=== PATIENT | female | born 1945 | race Caucasian/White ===

== ENCOUNTER → 2018-05-28 | Outpatient (CLI) | payer MEDICARE ==
[~2018-05-28] MED LIST: ACTOS 30 MG TAB30 MG; ACTOS 45 MG45 MG PO; ANTIVERT25 MG PO; ASA81BEC OR; ASPIR 8181 MG PO; ASPIRIN EC325 M1; ASPIRIN325 PO; ATENOLOL 25 MG25 M1 PO; ATIVAN0.5 MG PO; B-121000 MC2 PO; CLOTRIMAZOLE-BE15 GM TP; DIABETA 5MG TABL5 MG PO; DOXEPIN 50MG CA50 M1 PO; DOXEPIN HCL150 MG PO; EFFEXOR PO; EFFEXOR75 MG PO; FOSINOPRIL SODI20 M1 PO; GEMFIBROZIL 60600 MG PO; GLUCOPHAGE500 MG PO; GLYBURIDE 5 MG T5 MG PO; HUMALOG100 UNIT/2 SQ; HYDROCODONE-AP1 EAC6 PO; JANUVIA100 MG OR; LEVEMIR SUBQ; LIPITOR 20 MG T20 M1 PO; LUMIGAN2.5 M1 OP; MATZIM LA360 MG PO; MOBIC15 MG PO; NORCO 5-325 TA1 EACH PO; OMEPRAZOLE40 MG PO; PAROXETINE HCL20 MG; PAXIL10 MG PO; PERCOCET 7.5-31 EACH OR; SULINDAC 150 M150 MG PO; VALIUM5 MG PO; VITAMIN D3400 UNIT PO; XALATAN2.5 ML OP; XANAX 0.5 MG0.5 MG PO
== END ==
LOC: M.RAD 17:28
DX: J44.9 Chronic obstructive pulmonary disease, unspecified (principal); J20.9 Acute bronchitis, unspecified; E11.9 Type 2 diabetes mellitus without complications; I10 Essential (primary) hypertension

== ENCOUNTER 2018-09-06 12:34 | Emergency (ER) | payer MEDICARE ==
[~2018-09-06] VITALS: Ht 154.9 cm; Wt 117.5 kg
[2018-09-06] MEDS ORDERED: ASA5UEC PO (12:49)
[2018-09-06 13:17] LABS: URINE BILIRUBIN NEGATIVE (Negative); URINE BLOOD NEGATIVE (Negative); URINE CLARITY CLEAR; URINE COLOR YELLOW; URINE GLUCOSE-RANDOM NEGATIVE (Negative); URINE KETONES NEGATIVE (Negative); URINE LEUKOCYTES-REFLEX NEGATIVE (Negative); URINE NITRITE-REFLEX NEGATIVE (Negative); URINE PROTEIN NEGATIVE (Negative); URINE UROBILINOGEN 0.2 E.U./dl (0.2-1.0)
[2018-09-06 13:23] LABS: ABSOLUTE BASOPHILS 0.1 thou/uL (0.0-0.2); ABSOLUTE EOSINOPHILS 0.1 thou/uL (0.0-0.7); ABSOLUTE LYMPHOCYTES 1.6 thou/uL (0.8-5.3); ABSOLUTE MONOCYTES 0.4 thou/uL (0.0-1.2); ABSOLUTE NEUTROPHILS 3.3 thou/uL (1.6-8.1); BASOPHILS 1.1 %; EOSINOPHILS 1.3 %; HEMATOCRIT 36.6 % (37.0-47.0); HEMOGLOBIN 12.3 gm/dL (12.0-15.0); LYMPHOCYTES 29.6 %; MCH 29.5 pg (26.0-34.0); MCHC 33.5 g/dL (28.0-37.0); MONOCYTES 7.4 %; MPV 7.5 fl. (7.2-11.1); NUCLEATED RBCS 0 /100WBC; PLATELET COUNT* 194 thou/uL (150-400); POLYS 60.6 %; RBC 4.16 mil/uL (4.20-5.00); RDW-CV 14.5 % (10.5-14.5); WBC 5.5 thou/uL (4.0-11.0)
[2018-09-06 13:31] LABS: CALCIUM 9.2 mg/dL (8.5-10.1); POTASSIUM 4.1 mmol/L (3.5-5.1)
[2018-09-06 13:32] LABS: APTT 21.9 Seconds (25.0-31.3); PROTIME 10.5 Seconds (9.20-11.50)
[2018-09-06 13:35] LABS: ALBUMIN 3.3 g/dL (3.4-5.0); TOTAL PROTEIN 7.4 g/dL (6.4-8.2)
[2018-09-06 14:42] VITALS: BP 149/76
== END 2018-09-06 14:43 | disposition home or self-care (01) ==
LOC: M.ERS 12:34
PROVIDERS: Nurse Practitioner Family
DX: S30.0XXA Contusion of lower back and pelvis, initial encounter (principal); S20.221A Contusion of right back wall of thorax, initial encounter; E11.9 Type 2 diabetes mellitus without complications; F32.9 Major depressive disorder, single episode, unspecified; I10 Essential (primary) hypertension; Z90.710 Acquired absence of both cervix and uterus; Z90.49 Acquired absence of other specified parts of digestive tract; Z87.442 Personal history of urinary calculi; Z79.4 Long term (current) use of insulin; W18.2XXA Fall in (into) shower or empty bathtub, initial encounter; Y93.E1 Activity, personal bathing and showering; Y92.89 Other specified places as the place of occurrence of the external cause; Y99.8 Other external cause status

== ENCOUNTER 2019-10-01 02:57 | Emergency (ER) | payer MEDICARE ==
[~2019-10-01] VITALS: Ht 160 cm; Wt 105.2 kg
[~2019-10-01 02:57] MED LIST changes: +ASA5UEC PO
[2019-10-01] MEDS ORDERED: MAGNESIUM250 M1 PO (03:11)
[2019-10-01 03:18] LABS: URINE BILIRUBIN NEGATIVE (Negative); URINE BLOOD NEGATIVE (Negative); URINE CLARITY CLEAR; URINE COLOR YELLOW; URINE GLUCOSE-RANDOM NEGATIVE (Negative); URINE KETONES NEGATIVE (Negative); URINE LEUKOCYTES-REFLEX NEGATIVE (Negative); URINE NITRITE-REFLEX NEGATIVE (Negative); URINE PROTEIN NEGATIVE (Negative); URINE SPECIFIC GRAVITY <= 1.005 (1.005-1.030); URINE UROBILINOGEN 0.2 E.U./dl (0.2-1.0)
[2019-10-01 04:26] LABS: ABSOLUTE LYMPHOCYTES 1.6 thou/uL (0.8-5.3); ABSOLUTE MONOCYTES 0.5 thou/uL (0.0-1.2); ABSOLUTE NEUTROPHILS 3.2 thou/uL (1.6-8.1); BASOPHILS 0.8 %; EOSINOPHILS 0.8 %; HEMATOCRIT 29.8 % (37.0-47.0); HEMOGLOBIN 10.3 gm/dL (12.0-15.0); LYMPHOCYTES 30.1 %; MCH 28.7 pg (26.0-34.0); MCHC 34.7 g/dL (28.0-37.0); MCV 82.7 fL (80.0-100.0); MPV 7.4 fl. (7.2-11.1); NUCLEATED RBCS 0 /100WBC; PLATELET COUNT* 83 thou/uL (150-400); POLYS 59.3 %; RDW-CV 19.3 % (10.5-14.5); WBC 5.4 thou/uL (4.0-11.0)
[2019-10-01 04:38] LABS: CALCIUM 8.4 mg/dL (8.5-10.1); CREATININE 1.1 mg/dL (0.6-1.3); POTASSIUM 3.7 mmol/L (3.5-5.1)
[2019-10-01 04:40] LABS: INR 1.1; PROTIME 10.9 Seconds (9.20-11.50)
[2019-10-01 04:42] LABS: ALBUMIN 2.9 g/dL (3.4-5.0); TOTAL PROTEIN 6.5 g/dL (6.4-8.2)
[2019-10-01] MEDS ORDERED: PERCOCET 5-3251 EACH PO (07:15)
[2019-10-01 07:34] VITALS: BP 139/47
== END 2019-10-01 07:34 | disposition home or self-care (01) ==
LOC: M.ERS 02:57
PROVIDERS: Emergency Medicine
DX: S22.080A Wedge compression fracture of T11-T12 vertebra, initial encounter for closed fracture (principal); E11.9 Type 2 diabetes mellitus without complications; I10 Essential (primary) hypertension; Z90.710 Acquired absence of both cervix and uterus; Z90.49 Acquired absence of other specified parts of digestive tract; Z87.442 Personal history of urinary calculi; Z88.5 Allergy status to narcotic agent; Z79.4 Long term (current) use of insulin; Z88.8 Allergy status to other drugs, medicaments and biological substances; W10.8XXA Fall (on) (from) other stairs and steps, initial encounter; Y93.89 Activity, other specified; Y92.89 Other specified places as the place of occurrence of the external cause; Y99.8 Other external cause status

== ENCOUNTER 2019-10-05 02:17 | Emergency (ER) | payer MEDICARE ==
[~2019-10-05] VITALS: Ht 157.5 cm; Wt 105.2 kg
[~2019-10-05 02:17] MED LIST changes: +MAGNESIUM250 M1 PO; +PERCOCET 5-3251 EACH PO
[2019-10-05 03:23] LABS: URINE BILIRUBIN NEGATIVE (Negative); URINE BLOOD NEGATIVE (Negative); URINE CLARITY CLEAR; URINE COLOR YELLOW; URINE GLUCOSE-RANDOM 2+ (Negative); URINE KETONES NEGATIVE (Negative); URINE LEUKOCYTES-REFLEX NEGATIVE (Negative); URINE NITRITE-REFLEX NEGATIVE (Negative); URINE PROTEIN NEGATIVE (Negative); URINE UROBILINOGEN 0.2 E.U./dl (0.2-1.0)
[2019-10-05] MEDS ORDERED: FLEXERIL PO (04:41)
[2019-10-05] MEDS ORDERED: PERCOCET 7.5-31 EAC1 PO (04:41)
[2019-10-05 04:47] VITALS: BP 163/61
== END 2019-10-05 04:47 | disposition home or self-care (01) ==
LOC: M.ERS 02:17
PROVIDERS: Emergency Medicine
DX: M54.6 Pain in thoracic spine (principal); I10 Essential (primary) hypertension; E11.9 Type 2 diabetes mellitus without complications; Z90.710 Acquired absence of both cervix and uterus; Z90.49 Acquired absence of other specified parts of digestive tract; Z88.8 Allergy status to other drugs, medicaments and biological substances; Z88.5 Allergy status to narcotic agent; Z87.442 Personal history of urinary calculi

== ENCOUNTER 2019-10-10 05:42 | Inpatient (IN) | payer MEDICARE ==
[~2019-10-10] VITALS: Ht 157.5 cm; Wt 105.2 kg
[~2019-10-10 05:42] MED LIST changes: +FLEXERIL PO; +PERCOCET 7.5-31 EAC1 PO
[2019-10-10 05:45] VITALS: BP 207/88
--- NOTE | 2019-10-10 05:45 | NUR ---
PT AMBULATORY UPON ARRIVAL TO ED. PT GOT OFF OF EMS COT, WALKED WITH STEADY GAIT TO RESTROOM AND THEN WALKED TO ED ROOM BEFORE GETTING INTO ED BED. AFTER GETTING TO ROOM FOR TRIAGE, PT REQUESTING HER CANE. CANE WAS RETRIEVED FROM EMS AND GIVEN TO PATIENT.
--- NOTE | 2019-10-10 05:51 | NUR ---
WHILE TRYING TO DISCUSS TIME FRAME OF ONSET OF THIS PAIN, PT STATES SHE FELL ON 09/27/2019. WHEN ASKED IF THIS PAIN STARTED AFTER THE FALL, PT BECAME VERBALLY ABUSIVE TOWARDS NURSING STAFF. I SPOKE TO PATIENT ABOUT ATTEMPT TO UNDERSTANDING THE COMPLAINT, TO BETTER CARE FOR HER, PT ROLLED HER EYES AND AGAIN REFUSED TO CONTINUE TO ANSWER FURTHER QUESTIONS.
[2019-10-10 06:45] LABS: URINE BILIRUBIN NEGATIVE (Negative); URINE BLOOD NEGATIVE (Negative); URINE CLARITY CLEAR; URINE COLOR YELLOW; URINE GLUCOSE-RANDOM NEGATIVE (Negative); URINE KETONES NEGATIVE (Negative); URINE LEUKOCYTES-REFLEX NEGATIVE (Negative); URINE NITRITE-REFLEX NEGATIVE (Negative); URINE PROTEIN NEGATIVE (Negative); URINE UROBILINOGEN 0.2 E.U./dl (0.2-1.0)
[2019-10-10 07:03] LABS: ABSOLUTE BASOPHILS 0.1 thou/uL (0.0-0.2); ABSOLUTE EOSINOPHILS 0.1 thou/uL (0.0-0.7); ABSOLUTE LYMPHOCYTES 1.2 thou/uL (0.8-5.3); ABSOLUTE MONOCYTES 0.4 thou/uL (0.0-1.2); ABSOLUTE NEUTROPHILS 2.8 thou/uL (1.6-8.1); BASOPHILS 1.4 %; EOSINOPHILS 1.8 %; HEMATOCRIT 31.5 % (37.0-47.0); HEMOGLOBIN 10.6 gm/dL (12.0-15.0); LYMPHOCYTES 26.5 %; MCH 27.9 pg (26.0-34.0); MCHC 33.6 g/dL (28.0-37.0); MONOCYTES 8.2 %; MPV 7.2 fl. (7.2-11.1); NUCLEATED RBCS 0 /100WBC; PLATELET COUNT* 125 thou/uL (150-400); POLYS 62.1 %; RBC 3.79 mil/uL (4.20-5.00); RDW-CV 20.1 % (10.5-14.5); WBC 4.6 thou/uL (4.0-11.0)
[2019-10-10 07:13] LABS: CALCIUM 9.1 mg/dL (8.5-10.1); POTASSIUM 3.9 mmol/L (3.5-5.1)
[2019-10-10 07:17] LABS: ALBUMIN 3.2 g/dL (3.4-5.0); TOTAL BILIRUBIN 0.9 mg/dL (<0.1-1.0); TOTAL PROTEIN 7.1 g/dL (6.4-8.2)
--- NOTE | 2019-10-10 09:34 | NUR ---
PUREWICK ADMINISTERED TO PATIENT. PT GIVEN CLEAN BEDDING, FRESH WARM BLANKET.
--- NOTE | 2019-10-10 10:29 | NUR ---
PT HAS WOUND ON COCCYX THAT HE IS BEING TREATED FOR AT THIS FACILITY. PT REPORTS PAIN IN THAT AREA. PT ASSISTED ON RIGHT SIDE WITH PILLOW TO SUPPORT HIS BACK. PT REPORTS RELIEF OF PAIN IN COCCYX AREA.
--- NOTE | 2019-10-10 10:35 | NUR ---
PUREWICK REMOVED PER PT REQUEST.
[2019-10-10 11:17] VITALS: BP 175/22
[2019-10-10 12:45] VITALS: BP 154/71
[2019-10-10] MEDS ORDERED: ZESTRIL40 MG PO (14:13)
[2019-10-10] MEDS ORDERED: TOPROL XL50 MG PO (14:13)
[2019-10-10] MEDS ORDERED: NORVASC 2.5 MG2.5 M1 PO (14:13)
[2019-10-10] MEDS ORDERED: COMBIGAN EYE DR10 ML OPHTHALMIC (14:14)
[2019-10-10 16:00] VITALS: BP 145/76
--- NOTE | 2019-10-10 17:04 | NUR ---
PT ALERT AND ORIENTED AND DROWSY WITH PAIN MEDICATIONS. KHYPOPLASTY TOMORROW. JUAN PLACED ORDERED. PT HAS BM TODAY. FALL RISK PRECAUTIONS IN PLACE. HOURLY ROUNDING COMPLETED. WILL CONTINUE TO MONITOR.
[2019-10-10 20:05] VITALS: BP 144/68
--- NOTE | 2019-10-11 04:58 | NUR ---
SLEPT ALL NIGHT WITHOUT ANY ISSUES. GAVE ALL MEDS AND PAIN MEDICATION SCHEDULED. KYPHOPLASTY SCHEDULED POSSIBLY TODAY. HOURLY ROUNDING MADE. SHE DID NOT REPORT ANY WORSENING OF PAIN. WILL CONTINUE TO FOLLOW PLAN OF CARE.
[2019-10-11 08:27] LABS: APTT 25.2 Seconds (25.0-31.3); INR 1.1; PROTIME 11.4 Seconds (9.20-11.50)
--- NOTE | 2019-10-11 14:52 | NUR ---
SPOKE WITH PT.AND DAUGHTER,CONNIE IN ROOM. PT.LIVES WITH HER DAUGHTER,CONNIE, AND HER FAMILY IN A HOUSE. SHE HAS A WALKER AND CANE. RECENTLY FELL AND HAS HAD TERRIBLE BACK PAIN SINCE. IS SCHEDULED FOR A KYPHOPLASTY FOR TOMORROW AM. GOAL IS TO GO BACK TO DAUGHTERS HOME. WILL SEE HOW SHE DOES WITH P.T. POST KYPHOPLASTY.
[2019-10-11 16:17] VITALS: BP 135/54
--- NOTE | 2019-10-11 18:43 | NUR ---
PATIENT COOPERATIVE W/ ASSESS. PATIENT IRRITABLE AT TIMES, NOT RATING PAIN IN BACK AREA WHEN ASKED THIS AFTERNOON. PATIENT RESTING IN BED THRU SHIFT. FAMILY MEMBERS IN PERIODICALLY THRU SHIFT. IV SITE NOTED WNL. EDUCATED ON NPO STATUS AT [facility] FOR PROCEDURE IN THE AM. CALL LIGHT IN REACH. FAMILY MEMBERS IN AT THIS TIME. HRLY ROUNDS DONE. ~TJRN
[2019-10-11 20:00] VITALS: BP 138/57
--- NOTE | 2019-10-12 04:36 | NUR ---
ASSESSMENT: PT REMAIN ALERT AND ORIENT TIMES 3, FORGETFUL TO SITUATION AT TIMES. VSS, AFEBRILE. PRN PAIN MEDS PROVIDE ADEQUATE RELIEF OF PAIN PER PT. NPO SINCE MN. PT DID HAVE A LEFT NARE BLEED THAT SOON STOPPED WITH APPLIED PRESSURE. JUAN PATENT, WITH DARK YELLOW URINE OUTPUT. SLOW PROGRESS TOWARDS DC GOALS, WILL CONTINUE TO MONITOR.
[2019-10-12 09:00] VITALS: BP 152/73
--- NOTE | 2019-10-12 13:32 | NUR ---
PATIENT CO PAIN AFTER PROCEDURE. ASLEEP AT THIS TIME. TAKING PO WELL.
--- NOTE | 2019-10-12 14:00 | NUR ---
HAD KYPHOPLASTY THIS AM. AWAITING PT/OT TO SEE TO DETERMINE DISCHARGE PLAN. REHAB EVAL PENDING.
[2019-10-12 16:00] VITALS: BP 136/52
--- NOTE | 2019-10-12 18:03 | NUR ---
PATIENT UP TO CHAIR ALERT PT AND DAUGHTER CO PT UNTREATED ABDM. PAIN TOLD THEM I WOULD PASS ON TO PHYSCIAN.
[2019-10-12 20:02] VITALS: BP 149/81
[2019-10-13 00:48] VITALS: BP 134/65
--- NOTE | 2019-10-13 03:50 | NUR ---
ASSUMED CARE OF PT 10/12/19 AT APPROX 1930, PT A&OX4, PT ON ROOM AIR, VSS, PAIN MEDS GIVEN SCHEDULE - NO ADDITIONAL PAIN MEDS REQUESTED, JUAN DISCONTINUE APPROX 194, PT VOIDING WITHOUT DIFFICULTY, ASSESSMENTS AND HOURLY ROUNDINGS COMPLETED, WILL CONTINUE TO MONITOR.
[2019-10-13 04:41] VITALS: BP 156/70
[2019-10-13 09:16] VITALS: BP 148/73
--- NOTE | 2019-10-13 14:22 | NUR ---
Nutrition: Pt admitted for T12 compression FX. H/o DM. Renal stones. Assessed for high BMI. Wt: 232#. Eating well. BG WNL, alb 3.2. Low nutrition risk at this time.
[2019-10-13 16:19] VITALS: BP 148/55
--- NOTE | 2019-10-13 17:25 | NUR ---
PT A&Ox4. VITALS STABLE. PAIN PARTIALLY CONTROLLED. IV PATENT. UP STAND BY WITH WALKER. WORKED WITH PT AND OT. DENIED NAUSEA. FALL PRECAUTIONS IN PLACE. CALL LIGHT WITHIN REACH. WILL CONTINUE TO MONITOR.
[2019-10-13 19:40] VITALS: BP 160/58
--- NOTE | 2019-10-14 05:43 | NUR ---
ASSUMED CARE OF PATIENT AT APRPOX 1930. ALERT AND ORIENTED X4. ASSESSMENT COMPLETED AND CHARTED. VSS ON ROOM AIR. MANY COMPLAINTS AT BEGINNING OF SHIFT BUT NONE SPECIFIC ENOUGH TO ADDRESS. COMPLAINT OF PAIN MANAGED WITH ORAL PAIN MEDICATIONS. PATIENT UP WITH ASSIST TO USE THE BATHROOM. REFUSING TURNS BECAUSE PATIENT STATED THAT PT TOLD HER THAT SHE WAS NOT SUPPOSED TO BE DOING ANY BENDING, LIFTING OR TURNING AFTER KYPHOPLASTY. ORDERS REVIEWED AND I NOTED NO ORDER STATING SUCH. FALL PRECAUTIONS IN PLACE. CALL LIGHT WITHIN REACH. HOURLY ROUNDS COMPLETED. WILL CONTINUE WITH PLAN OF CARE.
[2019-10-14] MEDS ORDERED: TRAMADOL 50 MG50 MG PO (09:29)
[2019-10-14] MEDS ORDERED: LIDOPATCH1 EACH TOP (09:29)
[2019-10-14] MEDS ORDERED: OXYCODONE HCL 55 MG PO (09:29)
[2019-10-14 13:57] VITALS: BP 149/67
== END 2019-10-14 14:54 | DRG 516 ==
LOC: M.ERS 05:42 → M.ORTHSURG 10:03 → M.TBA-ER 10:03 → M.ORTHSURG 11:39
PROVIDERS: Personal Emergency Response Attendant; Radiology Vascular & Interventional Radiology; ADMIT Internal Medicine
PROC: 0PS43ZZ Reposition Thoracic Vertebra, Percutaneous Approach (ICD-10-PCS; principal; 2019-10-12)
PROC: 0PU43JZ Supplement Thoracic Vertebra with Synthetic Substitute, Percutaneous Approach (ICD-10-PCS; 2019-10-12)
DX: S22.080A Wedge compression fracture of T11-T12 vertebra, initial encounter for closed fracture (principal); Z68.41 Body mass index [BMI] 40.0-44.9, adult; E66.01 Morbid (severe) obesity due to excess calories; E11.9 Type 2 diabetes mellitus without complications; F32.9 Major depressive disorder, single episode, unspecified; I10 Essential (primary) hypertension; W18.30XA Fall on same level, unspecified, initial encounter; D46.9 Myelodysplastic syndrome, unspecified; Z88.8 Allergy status to other drugs, medicaments and biological substances; Z91.040 Latex allergy status; Z79.899 Other long term (current) drug therapy; Z79.82 Long term (current) use of aspirin; Z79.4 Long term (current) use of insulin; Z90.710 Acquired absence of both cervix and uterus; Z85.41 Personal history of malignant neoplasm of cervix uteri; Z90.49 Acquired absence of other specified parts of digestive tract; Z98.49 Cataract extraction status, unspecified eye; Z90.89 Acquired absence of other organs; Y93.89 Activity, other specified; Y92.098 Other place in other non-institutional residence as the place of occurrence of the external cause; Y99.8 Other external cause status

== ENCOUNTER 2019-10-14 12:40 | Inpatient (IN) | payer MEDICARE ==
[~2019-10-14] VITALS: Ht 157.5 cm; Wt 105.2 kg
[~2019-10-14 12:40] MED LIST changes: +COMBIGAN EYE DR10 ML OPHTHALMIC; +LIDOPATCH1 EACH TOP; +NORVASC 2.5 MG2.5 M1 PO; +OXYCODONE HCL 55 MG PO; +TOPROL XL50 MG PO; +TRAMADOL 50 MG50 MG PO; +ZESTRIL40 MG PO
[2019-10-14 15:38] VITALS: BP 153/53
[2019-10-14 20:32] VITALS: BP 147/54
[2019-10-15 04:12] LABS: MCH 27.6 pg (26.0-34.0); MCHC 33.5 g/dL (28.0-37.0); MCV 82.6 fL (80.0-100.0); MPV 7.8 fl. (7.2-11.1); RBC 3.99 mil/uL (4.20-5.00); RDW-CV 19.6 % (10.5-14.5); WBC 4.8 thou/uL (4.0-11.0)
[2019-10-15 04:23] LABS: CALCIUM 8.7 mg/dL (8.5-10.1); CREATININE 1.1 mg/dL (0.6-1.3); POTASSIUM 3.6 mmol/L (3.5-5.1)
[2019-10-15 07:51] VITALS: BP 128/57
[2019-10-15 20:09] VITALS: BP 132/65
[2019-10-16 07:30] VITALS: BP 146/58
[2019-10-16 20:14] VITALS: BP 130/55
[2019-10-17 07:30] VITALS: BP 139/56
[2019-10-17 19:15] VITALS: BP 141/73
[2019-10-18 08:12] VITALS: BP 131/54
[2019-10-18 19:00] VITALS: BP 152/70
[2019-10-19 05:35] LABS: HEMATOCRIT 31.8 % (37.0-47.0); HEMOGLOBIN 10.8 gm/dL (12.0-15.0); MCV 82.3 fL (80.0-100.0); RBC 3.86 mil/uL (4.20-5.00); RDW-CV 19.8 % (10.5-14.5); WBC 5.2 thou/uL (4.0-11.0)
[2019-10-19 05:54] LABS: ALBUMIN 3.1 g/dL (3.4-5.0); CALCIUM 8.9 mg/dL (8.5-10.1); MAGNESIUM 1.3 mg/dL (1.8-2.4); POTASSIUM 4.1 mmol/L (3.5-5.1); TOTAL BILIRUBIN 0.9 mg/dL (<0.1-1.0); TOTAL PROTEIN 6.9 g/dL (6.4-8.2)
[2019-10-19 07:33] VITALS: BP 139/52
[2019-10-19 19:00] VITALS: BP 153/62
[2019-10-20 07:56] VITALS: BP 128/52
[2019-10-20 20:13] VITALS: BP 132/55
[2019-10-20 21:48] LABS: URINE BILIRUBIN NEGATIVE (Negative); URINE BLOOD TRACE (Negative); URINE CLARITY CLEAR; URINE COLOR YELLOW; URINE GLUCOSE-RANDOM NEGATIVE (Negative); URINE KETONES NEGATIVE (Negative); URINE LEUKOCYTES-REFLEX 2+ (Negative); URINE NITRITE-REFLEX NEGATIVE (Negative); URINE PROTEIN NEGATIVE (Negative); URINE SPECIFIC GRAVITY 1.015 (1.005-1.030); URINE UROBILINOGEN 0.2 E.U./dl (0.2-1.0)
[2019-10-20 22:00] LABS: MUCUS None Seen strn/LPF (None Seen); SQUAMOUS >10 Many /LPF (0-3)
[2019-10-20 22:01] LABS: CASTS None Seen /LPF (None Seen); CRYSTALS None Seen /LPF (None Seen); URINE WBC-REFLEX 6-15 Few /HPF (0-5)
[2019-10-20 22:02] LABS: URINE RBC 0-2 Rare /HPF (0-2)
[2019-10-21 07:53] VITALS: BP 130/51
[2019-10-21 20:14] VITALS: BP 122/52
[2019-10-22 08:22] VITALS: BP 139/59
[2019-10-22 20:18] VITALS: BP 122/52
[2019-10-23 08:00] VITALS: BP 140/55
[2019-10-23 19:30] VITALS: BP 120/41
[2019-10-24 08:02] VITALS: BP 149/59
[2019-10-24 19:30] VITALS: BP 121/48
[2019-10-25 07:58] VITALS: BP 167/64
[2019-10-25 08:09] VITALS: BP 136/45
[2019-10-25 19:10] VITALS: BP 123/48
[2019-10-26 08:00] VITALS: BP 129/75
[2019-10-26 14:51] LABS: HEMATOCRIT 33.6 % (37.0-47.0); HEMOGLOBIN 11.3 gm/dL (12.0-15.0); MCHC 33.7 g/dL (28.0-37.0); MCV 82.9 fL (80.0-100.0); MPV 8.6 fl. (7.2-11.1); RBC 4.05 mil/uL (4.20-5.00); WBC 5.9 thou/uL (4.0-11.0)
[2019-10-26 15:03] LABS: CALCIUM 9.3 mg/dL (8.5-10.1); CREATININE 1.4 mg/dL (0.6-1.3); MAGNESIUM 1.6 mg/dL (1.8-2.4); POTASSIUM 5.3 mmol/L (3.5-5.1)
[2019-10-26 19:30] VITALS: BP 126/73
[2019-10-27 08:08] VITALS: BP 131/63
[2019-10-27] MEDS ORDERED: ARICEPT10 M1 PO (11:29)
[2019-10-27] MEDS ORDERED: NYSTATIN1 EA10 TOP (11:40)
[2019-10-27] MEDS ORDERED: PEPTO-BISMOL262 M1 PO (11:45)
[2019-10-27 13:21] VITALS: BP 131/63
[2019-10-27 14:38] VITALS: BP 131/63
== END 2019-10-27 18:38 | disposition home health service (06) | DRG 552 ==
LOC: M.REH 12:40
PROVIDERS: Family Medicine; Internal Medicine; ADMIT Physical Medicine & Rehabilitation
DX: S22.089A Unspecified fracture of T11-T12 vertebra, initial encounter for closed fracture (principal); Z68.41 Body mass index [BMI] 40.0-44.9, adult; N39.0 Urinary tract infection, site not specified; F32.9 Major depressive disorder, single episode, unspecified; I10 Essential (primary) hypertension; E11.9 Type 2 diabetes mellitus without complications; E66.01 Morbid (severe) obesity due to excess calories; I83.90 Asymptomatic varicose veins of unspecified lower extremity; F41.9 Anxiety disorder, unspecified; W18.39XA Other fall on same level, initial encounter; N39.46 Mixed incontinence; K59.00 Constipation, unspecified; R53.81 Other malaise; J44.9 Chronic obstructive pulmonary disease, unspecified; Z96.653 Presence of artificial knee joint, bilateral; Z91.041 Radiographic dye allergy status; Z88.6 Allergy status to analgesic agent; Z88.8 Allergy status to other drugs, medicaments and biological substances; Z90.710 Acquired absence of both cervix and uterus; Z90.49 Acquired absence of other specified parts of digestive tract; Z98.49 Cataract extraction status, unspecified eye; Z85.41 Personal history of malignant neoplasm of cervix uteri; Y93.89 Activity, other specified; Y92.89 Other specified places as the place of occurrence of the external cause; Y99.8 Other external cause status; Z91.048 Other nonmedicinal substance allergy status; Z79.899 Other long term (current) drug therapy; Z79.82 Long term (current) use of aspirin; Z79.4 Long term (current) use of insulin; Z82.49 Family history of ischemic heart disease and other diseases of the circulatory system; Z82.5 Family history of asthma and other chronic lower respiratory diseases; Z83.3 Family history of diabetes mellitus

== ENCOUNTER 2020-03-31 13:16 | Emergency (ER) | payer MEDICARE ==
[~2020-03-31] VITALS: Ht 160 cm; Wt 105.2 kg
[~2020-03-31 13:16] MED LIST changes: +ARICEPT10 M1 PO; +NYSTATIN1 EA10 TOP; +PEPTO-BISMOL262 M1 PO
[2020-03-31] MEDS ORDERED: MELOXICAM15 MG PO (13:28)
[2020-03-31] MEDS ORDERED: ALPRAZOLAM 0.50.5 M1 PO (13:29)
[2020-03-31 13:53] LABS: HEMOGLOBIN 7.2 gm/dL (12.0-15.0); WBC 4.6 thou/uL (4.0-11.0)
[2020-03-31 13:55] LABS: HEMATOCRIT 21.6 % (37.0-47.0); MCH 24.3 pg (26.0-34.0); MCHC 33.1 g/dL (28.0-37.0); MCV 73.5 fL (80.0-100.0); MPV 6.9 fl. (7.2-11.1); NUCLEATED RBCS 6 /100WBC; RBC 2.94 mil/uL (4.20-5.00); RDW-CV 30.5 % (10.5-14.5)
[2020-03-31 14:02] LABS: CALCIUM 8.8 mg/dL (8.5-10.1); CREATININE 1.1 mg/dL (0.6-1.3); POTASSIUM 4.3 mmol/L (3.5-5.1)
[2020-03-31 14:05] LABS: APTT 22.5 Seconds (25.0-31.3); INR 1.2; PROTIME 12.6 Seconds (9.20-11.50)
[2020-03-31 14:07] LABS: ALBUMIN 3.3 g/dL (3.4-5.0); TOTAL BILIRUBIN 1.4 mg/dL (<0.1-1.0); TOTAL PROTEIN 6.6 g/dL (6.4-8.2)
[2020-03-31 14:32] LABS: ABSOLUTE LYMPHOCYTES 2.1 thou/uL (0.8-5.3); METAMYELOCYTES 2 %; MYELOCYTES 6 %; PLATELET ESTIMATE DECREASED; PROMYELOCYTES 2 %
[2020-03-31 14:33] LABS: ANISOCYTOSIS 3+; HYPOCHROMASIA 2+; POIKILOCYTOSIS 2+; POLYCHROMASIA 1+
[2020-03-31 14:34] LABS: SCHISTOCYTES 1+
[2020-03-31 14:37] LABS: BLASTS 10 %; PLATELET COUNT* 24 thou/uL (150-400)
--- NOTE | 2020-03-31 16:06 | EKG ---
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 : 1945 Requested By: Vinicius Olea Order Number: [id number] MD: Phillip Paula Measurements Intervals [place] Rate: 79 P: 58 [place]: 153 QRS: -29 QRSD: 121 T: 9 QT: 438 QTc: 503 Interpretive Statements Sinus rhythm Right bundle branch block Compared to ECG 02/01/2016 22:25:04 Right bundle-branch block now present Electronically Signed On 03-31-2020 16:06:37 CDT by Phillip Paula [email or web address] <ELECTRONICALLY SIGNED> By: Phillip Paula MD, [facility] 03/31/20 1606 1450 49 Phililp Paula MD, [facility] /EPI
[2020-03-31 18:15] VITALS: BP 162/57
== END 2020-03-31 18:15 | disposition short-term general hospital (02) ==
LOC: M.ERS 13:16
PROVIDERS: Family Medicine
DX: D64.9 Anemia, unspecified (principal); D69.6 Thrombocytopenia, unspecified; R04.0 Epistaxis; I10 Essential (primary) hypertension; E11.9 Type 2 diabetes mellitus without complications; J44.9 Chronic obstructive pulmonary disease, unspecified; F41.9 Anxiety disorder, unspecified; F32.9 Major depressive disorder, single episode, unspecified; Z20.828 Contact with and (suspected) exposure to other viral communicable diseases; Z90.710 Acquired absence of both cervix and uterus; Z90.49 Acquired absence of other specified parts of digestive tract; Z85.41 Personal history of malignant neoplasm of cervix uteri; Z96.653 Presence of artificial knee joint, bilateral; Z91.048 Other nonmedicinal substance allergy status; Z88.6 Allergy status to analgesic agent; Z88.8 Allergy status to other drugs, medicaments and biological substances